=== PATIENT | male | born 1975 | race Caucasian/White ===

== ENCOUNTER 2018-01-31 04:40 | Emergency (ER) | payer SELFPAY ==
[2018-01-31 04:54] VITALS: BP 127/83
--- NOTE | 2018-01-31 05:09 | EDM.PDOC ---
ED HPI GENERAL MEDICAL PROBLEM - General Chief Complaint: Upper Extremity Injury/Pain Stated Complaint: LEFT HAND INFECTED Time Seen by Provider: 01/31/18 04:52 Source of Information: Reports: Patient History Limitations: Reports: No Limitations - History of Present Illness INITIAL COMMENTS - FREE TEXT/NARRATIVE: The patient states that some rebar metal was stuck into his left palm about 12 days ago (on or about 01/19/2018). He states that he soaked his hand and hydroperoxide, and apply Neosporin to the area. He states that he was able to remove some metallic foreign body 3 or 4 days later. In the meantime, he has suffered several wood splinters to his left hand, including to the radial aspect of his fifth finger, the distal phalanx of his second finger, and he also has blisters on his thumb and second fingers from abrasion from his work gloves. The patient has not sought medical evaluation for any of these injuries. The patient does not have a PCP. Left Hand Pain Score (Numeric/FACES): 4 - Related Data Allergies Allergy/AdvReac Type Severity Reaction Status Date / Time No Known Allergies Allergy Verified 01/31/18 04:57 Home Meds: Home Meds Cephalexin [Keflex] 1 cap PO Q6H #40 capsule 01/31/18 [Rx] Past Medical History Psychiatric History: Reports: Anxiety, Mood Swings - Past Surgical History HEENT Surgical History: Reports: Oral Surgery ([place] teeth extraction), Tonsillectomy Neurological Surgical History: Reports: Lumbar Spine (x 3, including 2 fusions) Social & Family History - Family History Family Medical History: Noncontributory - Tobacco Use Smoking Status *Q: Current Every Day Smoker Years of Tobacco use: 24 Packs/Tins Daily: 1 Packs/Tins Daily Comment: Down from 2 ppd - Alcohol Use Alcohol Use History: Yes Alcohol Use Frequency: Binges (1 day/week), Socially - Recreational Drug Use Recreational Drug Use: Yes Drug Use in Last 12 Months: Yes Recreational Drug Type: Reports: Cocaine (last around 1999), LSD (Acid) (last around 1999), Marijuana/Hashish (smokes on occasion), Psilocybin (Mushrooms) ( last around 1999), Other (see below) (Opioids - last around 1999) - Living Situation & Occupation Living situation: Reports: , Alone Occupation: Employed (Construction) Review of Systems - Review of Systems Review Of Systems: ROS reveals no pertinent complaints other than HPI. ED EXAM, GENERAL - Physical Exam Exam: See Below Exam Limited By: No Limitations General Appearance: Alert, WD/WN, No Apparent Distress Extremities: Other (There is a buildup of callus with a central split on the left palm, proximal to the second and third MCP joints. No purulent, and the area does not appear to be infected. The left fifth finger is significantly swollen and erythematous, with a purulent ulcer over radial aspect of the PIP joint. I was able to express some pus. Noninfected abrasion to the radial aspect of the patient's proximal left thumb. No significant swelling to the distal phalanx of the left second finger. Neurovascular status of the left hand is intact.) Course - Vital Signs Last Recorded V/S: Last Vital Signs Temp 36.7 C 01/31/18 04:50 Pulse 90 01/31/18 04:50 Resp 16 01/31/18 04:50 BP 127/83 01/31/18 04:50 Pulse Ox 98 01/31/18 04:50 - Orders/Labs/Meds Orders: Active Orders 24 hr Category Date Time Status Hand Comp Min 3V Lt [CR] Stat Exams 01/31/18 04:56 Taken Meds: Medications Discontinued Medications Generic Name Dose Route Start Last Admin Trade Name Nan PRN Reason Stop Dose Admin Cephalexin 500 mg 01/31/18 05:10 Keflex PO 01/31/18 05:11 ONETIME ONE - Re-Assessments/Exams Free Text/Narrative Re-Assessment/Exam: 01/31/18 05:08 4-view radiographs of the left hand appear grossly unremarkable. No foreign bodies identified. No fractures or dislocations. Formal read per the Radiologist pending. 01/31/18 05:17 The patient appears to have some inflammation to his left palm, proximal to the second and third MCP joints, where he was punctured by metal, but there is no obvious infection. There is no question, however, that there is an infection to the radial aspect of his left fifth finger. I have started the patient on Keflex , and will prescribe a ten-day course. More importantly, however, I would like the patient to follow-up with Dr. Villatoro at the next available appointment. I will also refer the patient to Dr. Guthrie, with whom the patient can follow-up as a PCP. Departure - Departure Time of Disposition: 05:18 Disposition: Home, Self-Care 01 Condition: Good Clinical Impression: Infection of left hand - Discharge Information Referrals: PCP,None [Primary Care Provider] - Javon Villatoro MD [Physician] - Madeline Guthrie [Physician] - Forms: ED Department Discharge Additional Instructions: You were seen in the emergency room for several areas on your left hand that might have been infected. On examination, there is no question but that you have an infection of your left pinky finger. You have been started on the antibiotic Keflex. A prescription for Keflex has been sent to the [facility], located at [address] [place] [address], in the [facility] grocery store. Take one tablet every 6 hours, as prescribed. Finish the entire prescription unless told otherwise by Dr. Villatoro. Follow-up with the Orthopedic Surgeon Dr. Villatoro at the next available appointment. We recommend that you call his office at 8:00 this morning, to see if you can be seen today. Follow-up with Dr. Guthrie in the clinic, to establish a primary care physician. If any other problems, please do not hesitate to return to the ER. - My Orders Last 24 Hours: My Active Orders 01/31/18 04:56 Hand Comp Min 3V Lt [CR] Stat - Assessment/Plan Last 24 Hours: My Active Orders 01/31/18 04:56 Hand Comp Min 3V Lt [CR] Stat
[2018-01-31] MEDS ORDERED: Cephalexin 500 MG Cap PO ONE (05:10)
--- NOTE | 2018-01-31 10:24 | CR ---
Left hand: Four views of the left hand were obtained. Comparison: No prior study. Minimal cystic change is noted within the distal ulna as well as within several carpal bones which is felt to be incidental. No fracture, dislocation or other bony abnormality is seen. No radiopaque foreign object is seen. Impression: 1. Incidental findings. Nothing acute is appreciated on the left and exam. Diagnostic code #2
== END 2018-01-31 05:34 | disposition home or self-care (01) ==
LOC: JD.ED 04:40
DX: L08.9 Local infection of the skin and subcutaneous tissue, unspecified (principal); F17.210 Nicotine dependence, cigarettes, uncomplicated
CPT/HCPCS: 73130; 99283; A9270

== ENCOUNTER 2021-10-25 12:06 | Emergency (ER) | payer SELFPAY ==
[2021-10-25] MEDS ORDERED: Sodium Chloride 0.9% 10 ML Syringe FLUSH PRN (12:10)
[2021-10-25] MEDS ORDERED: ceFAZolin 2 GM in Premix Bag 1 BAG IV ONE (12:11)
[2021-10-25] MEDS ORDERED: ceFAZolin 1 GM Vial ONE (12:21)
[2021-10-25] MEDS ORDERED: HYDROmorphone 1 MG/ML Syringe IVPUSH ONE ×2 (12:37→14:06)
[2021-10-25] MEDS ORDERED: Lidocaine 1% with EPINEPHrine 1:100,000 10 ML MDV INJECT ONE (13:18)
[2021-10-25] MEDS ORDERED: Lidocaine 1% with EPINEPHrine 1:100,000 20 ML MDV ONE (14:17)
[2021-10-25] MEDS ORDERED: Diphtheria,Pertussis(Acell),Tetanus Vaccine 0.5 ML Syringe IM ONE (16:02)
[2021-10-25 16:45] VITALS: BP 130/75; PULSE 88
== END 2021-10-25 16:44 | disposition home or self-care (01) ==
LOC: JD.ED 12:06
DX: S61.442A Puncture wound with foreign body of left hand, initial encounter (principal); Z72.0 Tobacco use; Z23 Encounter for immunization; W32.0XXA Accidental handgun discharge, initial encounter; Y92.009 Unspecified place in unspecified non-institutional (private) residence as the place of occurrence of the external cause
CPT/HCPCS: 12004; 73130; 90471; 90715; 96365; 96375; 96376; 99283; J0690; J1170; 12015

== ENCOUNTER 2022-06-07 17:40 | Emergency (ER) | payer SELFPAY | END 2022-06-07 18:00 | disposition left against medical advice (07) | LOC: JD.ED 17:40 | DX: Z53.21 Procedure and treatment not carried out due to patient leaving prior to being seen by health care provider (principal) ==

== ENCOUNTER 2022-06-20 09:55 | Emergency (ER) | payer SELFPAY ==
[2022-06-20] MEDS ORDERED: Lidocaine 1% 10 ML MDV INJECT ONE (11:08)
[2022-06-20 12:32] VITALS: BP 145/78; PULSE 78
== END 2022-06-20 12:29 | disposition home or self-care (01) ==
LOC: JD.ED 09:55
DX: S61.211A Laceration without foreign body of left index finger without damage to nail, initial encounter (principal); Z72.0 Tobacco use; W26.8XXA Contact with other sharp object(s), not elsewhere classified, initial encounter
CPT/HCPCS: 12001; 99282

== ENCOUNTER 2022-08-18 21:31 | Emergency (ER) | payer SELFPAY ==
[2022-08-18 21:45] VITALS: BP 138/101; PULSE 84
== END 2022-08-18 22:43 | disposition home or self-care (01) ==
LOC: JD.ED 21:31 → MERGE 21:31 → JD.ED 22:43
DX: R41.82 Altered mental status, unspecified (principal); F17.210 Nicotine dependence, cigarettes, uncomplicated
CPT/HCPCS: 82375; 99284